=== PATIENT | male | born 1975 | race Caucasian/White ===

== ENCOUNTER → 2016-09-13 | Outpatient (CLI) | payer OTHER | END | disposition home or self-care (01) | LOC: CFH 09:41 | PROVIDERS: ATTEND Physician Assistant Medical | DX: M51.37 Other intervertebral disc degeneration, lumbosacral region (principal); M51.27 Other intervertebral disc displacement, lumbosacral region; M47.897 Other spondylosis, lumbosacral region; M50.221 Other cervical disc displacement at C4-C5 level | CPT/HCPCS: 72141; 72148 ==